=== PATIENT | female | born 1935 | race Caucasian/White ===

== ENCOUNTER 2023-05-25 12:16 | Emergency (ER) | payer BC, OTHER ==
[~2023-05-25] VITALS: Ht 172.7 cm; Wt 110.0 kg
[2023-05-25] MEDS ORDERED: IBUPROFEN 600 MG TAB PO ONE (14:00)
[2023-05-25 15:35] VITALS: O2SAT 96
[2023-05-25] MEDS ORDERED: IBUP-1454 PO (15:36)
[2023-05-25 15:42] VITALS: BP 142/82; PULSE 85; RESP 18; O2SAT 96
== END 2023-05-25 15:43 | disposition home or self-care (01) ==
LOC: ER 12:16 → EDBD 12:16 → ER 15:43
DX: S52.592A Other fractures of lower end of left radius, initial encounter for closed fracture (principal); S93.491A Sprain of other ligament of right ankle, initial encounter; S70.01XA Contusion of right hip, initial encounter; Z85.05 Personal history of malignant neoplasm of liver; Z90.49 Acquired absence of other specified parts of digestive tract; Z88.0 Allergy status to penicillin; Z88.2 Allergy status to sulfonamides; Z88.6 Allergy status to analgesic agent; Z88.8 Allergy status to other drugs, medicaments and biological substances; Z79.1 Long term (current) use of non-steroidal anti-inflammatories (NSAID); W01.0XXA Fall on same level from slipping, tripping and stumbling without subsequent striking against object, initial encounter; Y93.01 Activity, walking, marching and hiking; Y92.480 Sidewalk as the place of occurrence of the external cause; Y99.8 Other external cause status
CPT/HCPCS: 29125; 70450; 73080; 73110; 73502; 73610

== ENCOUNTER 2024-05-25 12:37 | Inpatient (IN) | payer BC ==
[~2024-05-25] VITALS: Ht 167.6 cm; Wt 59.6 kg
[2024-05-25] VITALS (14 sets, daily range): BP systolic 116–136; BP diastolic 61–72; PULSE 57–95; RESP 12–23; TEMP 97.7–98; O2SAT 97–100
[~2024-05-25 12:37] MED LIST: IBUP-1454 PO
[2024-05-25] MEDS: ATROPINE SULF 1 MG/10ml SYR ONE ×2 (12:50→13:26)
[2024-05-25] MEDS: ANGIOMAX 250 MG VIAL IV ONE (12:50)
[2024-05-25] MEDS: IODIXANOL 320MG/ML 100ML BTL IV ONE (12:51)
[2024-05-25] MEDS: VERAPAMIL 2.5MG/ML INJ 2ML VIAL IV ONE (12:51)
[2024-05-25] MEDS: LIDOCAINE 2%HCL (LOCAL ANESTH.) INJ 10ml MDV ONE ×2 (12:51→13:04)
[2024-05-25] MEDS: fentaNYL CITRATE 100 MCG/2 ML VL ONE (12:51)
[2024-05-25] MEDS: SODIUM CHL 0.9% 50 ML ONE (12:51)
[2024-05-25] MEDS: MIDAZOLAM HCL 2MG/2ML 2ml VIAL (1mg/ml) ONE (12:51)
[2024-05-25] MEDS: diphenhdrAMINE HCL 50 MG/1 ML VL ONE (13:04)
[2024-05-25 13:05] LABS: Basophils # (auto) 0 10 ^3/uL (0-0.2); Basophils % (auto) 0.3 % (0.0-2.0); Eosinophils # (auto) 0.1 10 ^3/uL (0-0.8); Eosinophils % (auto) 0.9 % (0.0-7.0); Hematocrit 37.8 % (36.0-46.0); Hemoglobin 12.7 g/dL (12.2-16.2); Lymphocytes # (auto) 2.8 10 ^3/uL (0.4-5.4); Lymphocytes % (auto) 29.5 % (10.0-50.0); Mean Corpuscular Hemoglobin 29.8 pg (28.0-32.0); Mean Corpuscular Hgb Conc. 33.5 g/dL (32.0-36.0); Monocytes # (auto) 0.7 10 ^3/uL (0-1.3); Monocytes % (auto) 7.4 % (0.0-12.0); Neutrophils # (auto) 5.8 10 ^3/uL (1.6-8.6); Neutrophils % (auto) 61.9 % (37.0-80.0); Red Blood Cells 4.25 10^6/uL (4.0-5.20); Red Cell Distribution Width 14.9 % (11.8-14.3); White Blood Cell 9.3 10^3/uL (4.4-10.8)
[2024-05-25] MEDS: EPINEPHrine HCL 1 MG/10 ML SYRG ONE (13:11)
[2024-05-25 13:22] LABS: INR 1.08 (0.9-1.15); Partial Thromboplastin Time 24.3 SEC (24.5-34.5); Prothrombin Time 11.4 sec (9.3-11.8)
[2024-05-25 13:27] LABS: Alanine Aminotransferase 16 U/L (7-40); Albumin 4.2 g/dL (3.2-4.8); Alkaline Phosphatase 63 U/L (46-116); Anion Gap 7 (5-15); Aspartate Aminotransferase 16 U/L (13-40); BUN/Creatinine Ratio 21.9 (10.0-20.0); Bilirubin, Total 0.5 mg/dL (0.2-1.0); Blood Urea Nitrogen 21 mg/dL (9-23); Calcium 10.1 mg/dL (8.7-10.4); Carbon Dioxide 26 mmol/L (20-30); Chloride 110 mmol/L (98-107); Glucose 132 mg/dL (74-106); Potassium 3.9 mmol/L (3.5-5.1); Sodium 143 mmol/L (136-145); Total Protein 5.8 g/dL (5.7-8.2)
[2024-05-25] MEDS: CLOPIDOGREL BISULFATE 75 MG TAB ONE ×2 (13:28→13:31)
[2024-05-25] MEDS ORDERED: NITROGLYCERIN 0.4 MG SL TAB SL PRN ×2 (13:30→14:00)
[2024-05-25] MEDS ORDERED: ALEN70TA74 PO (13:52)
[2024-05-25] MEDS ORDERED: SIMV20TA20 PO (13:52)
[2024-05-25] MEDS ORDERED: MORPHINE SULFATE INJ 2 MG/ml SYRG IV PRN (14:00)
[2024-05-25] MEDS ORDERED: ALENDRONATE SODIUM PO SCH (14:00)
[2024-05-25] MEDS ORDERED: ACETAMINOPHEN 325 MG TAB PO PRN (14:00)
[2024-05-25] MEDS: PANTOPRAZOLE 40 MG/10 ML VIAL INJ IV ONE (16:10)
[2024-05-25] MEDS: SODIUM CHLORIDE 0.9% 1,000 ML IV SCH (16:10)
[2024-05-25] MEDS: ATORVASTATIN 20 MG TAB PO SCH (21:52)
[2024-05-25] MEDS: METOPROLOL TARTRATE 25 MG TAB PO SCH (21:52)
[2024-05-25] MEDS ORDERED: ATORVASTATIN 20 MG TAB PO SCH (22:00)
[2024-05-26] VITALS (7 sets, daily range): BP systolic 100–126; BP diastolic 40–56; PULSE 46–72; RESP 12–20; TEMP 97.3–98; O2SAT 95–96
[2024-05-26 06:04] LABS: Basophils # (auto) 0 10 ^3/uL (0-0.2); Basophils % (auto) 0.3 % (0.0-2.0); Eosinophils # (auto) 0.1 10 ^3/uL (0-0.8); Eosinophils % (auto) 0.9 % (0.0-7.0); Hematocrit 36.6 % (36.0-46.0); Hemoglobin 12.2 g/dL (12.2-16.2); Lymphocytes % (auto) 14.2 % (10.0-50.0); Mean Corpuscular Hemoglobin 29.7 pg (28.0-32.0); Mean Corpuscular Hgb Conc. 33.3 g/dL (32.0-36.0); Monocytes # (auto) 0.4 10 ^3/uL (0-1.3); Monocytes % (auto) 6.3 % (0.0-12.0); Neutrophils # (auto) 5.4 10 ^3/uL (1.6-8.6); Neutrophils % (auto) 78.3 % (37.0-80.0); Red Blood Cells 4.11 10^6/uL (4.0-5.20); Red Cell Distribution Width 15.1 % (11.8-14.3); White Blood Cell 6.9 10^3/uL (4.4-10.8)
[2024-05-26 08:12] LABS: Chloride 109 mmol/L (98-107); Potassium 3.8 mmol/L (3.5-5.1); Sodium 140 mmol/L (136-145)
[2024-05-26 08:13] LABS: Anion Gap 7 (5-15); Calcium 9.5 mg/dL (8.7-10.4); Carbon Dioxide 24 mmol/L (20-30)
[2024-05-26 08:18] LABS: BUN/Creatinine Ratio 13.9 (10.0-20.0); Blood Urea Nitrogen 10 mg/dL (9-23); Glucose 88 mg/dL (74-106)
[2024-05-26] MEDS: LISINOPRIL 5 MG TAB PO SCH (10:00)
[2024-05-26] MEDS: PANTOPRAZOLE 40 MG/10 ML VIAL INJ IV SCH (11:06)
[2024-05-26] MEDS: ASPirin 81 mg TAB PO SCH (11:07)
[2024-05-26] MEDS: CLOPIDOGREL BISULFATE 75 MG TAB PO SCH (11:07)
[2024-05-26] MEDS ORDERED: LISI-275 PO (12:38)
[2024-05-26] MEDS ORDERED: CLOP75TA70 PO (12:38)
[2024-05-26] MEDS ORDERED: MET25T PO (12:38)
[2024-05-26] MEDS ORDERED: ASPI-325 PO (12:38)
[2024-05-26] MEDS ORDERED: ATOR40TA52 PO (12:38)
[2024-05-27 04:43] VITALS: BP 117/61; PULSE 59; RESP 20; TEMP 97.7; O2SAT 95
[2024-05-27 06:54] LABS: Basophils # (auto) 0 10 ^3/uL (0-0.2); Basophils % (auto) 0.3 % (0.0-2.0); Eosinophils # (auto) 0.1 10 ^3/uL (0-0.8); Eosinophils % (auto) 1.2 % (0.0-7.0); Hematocrit 37.2 % (36.0-46.0); Hemoglobin 12.3 g/dL (12.2-16.2); Lymphocytes % (auto) 18.9 % (10.0-50.0); Mean Corpuscular Hemoglobin 29.1 pg (28.0-32.0); Mean Corpuscular Volume 88.1 fL (80.0-100.0); Monocytes # (auto) 0.4 10 ^3/uL (0-1.3); Monocytes % (auto) 7.5 % (0.0-12.0); Neutrophils # (auto) 3.8 10 ^3/uL (1.6-8.6); Neutrophils % (auto) 72.1 % (37.0-80.0); Red Blood Cells 4.22 10^6/uL (4.0-5.20); Red Cell Distribution Width 15.2 % (11.8-14.3); White Blood Cell 5.2 10^3/uL (4.4-10.8)
[2024-05-27 07:14] LABS: Alanine Aminotransferase 14 U/L (7-40); Alkaline Phosphatase 55 U/L (46-116); Anion Gap 6 (5-15); BUN/Creatinine Ratio 15.1 (10.0-20.0); Blood Urea Nitrogen 11 mg/dL (9-23); Calcium 9.6 mg/dL (8.7-10.4); Carbon Dioxide 26 mmol/L (20-30); Chloride 109 mmol/L (98-107); Glucose 96 mg/dL (74-106); Sodium 141 mmol/L (136-145)
[2024-05-27 07:16] LABS: Albumin 3.9 g/dL (3.2-4.8); Aspartate Aminotransferase 38 U/L (13-40); Bilirubin, Total 0.9 mg/dL (0.2-1.0); Total Protein 5.6 g/dL (5.7-8.2)
[2024-05-27 07:25] VITALS: PULSE 64; PULSE 66
[2024-05-27 09:03] VITALS: BP 106/65; PULSE 83; RESP 20; TEMP 98.9; O2SAT 97
[2024-05-27 10:42] VITALS: BP 107/47; PULSE 70
[2024-05-27 12:17] VITALS: BP 111/62; PULSE 66; RESP 20; TEMP 98.4; O2SAT 96
[2024-05-28 09:22] LABS: Free T3 2.94 pg/mL (2.3-4.2)
[2024-05-28 09:23] LABS: Free T4 (Free Thyroxine) 1.09 ng/dL (0.89-1.76)
== END 2024-05-27 15:25 | disposition home or self-care (01) | DRG 321 ==
LOC: ER 12:37 → EDBD 12:37 → TELE 13:31 → TELE-CENTR 18:10
PROVIDERS: ADMIT Nurse Practitioner Acute Care; ATTEND Nurse Practitioner Family
PROC: 02703DZ Dilation of Coronary Artery, One Artery with Intraluminal Device, Percutaneous Approach (ICD-10-PCS; principal; 2024-05-25)
PROC: 02C03ZZ Extirpation of Matter from Coronary Artery, One Artery, Percutaneous Approach (ICD-10-PCS; 2024-05-25)
PROC: 4A023N7 Measurement of Cardiac Sampling and Pressure, Left Heart, Percutaneous Approach (ICD-10-PCS; 2024-05-25)
PROC: B211YZZ Fluoroscopy of Multiple Coronary Arteries using Other Contrast (ICD-10-PCS; 2024-05-25)
DX: I21.29 ST elevation (STEMI) myocardial infarction involving other sites (principal); G92.8 Other toxic encephalopathy; I50.32 Chronic diastolic (congestive) heart failure; E78.5 Hyperlipidemia, unspecified; M81.0 Age-related osteoporosis without current pathological fracture; I25.10 Atherosclerotic heart disease of native coronary artery without angina pectoris; D69.6 Thrombocytopenia, unspecified; K21.9 Gastro-esophageal reflux disease without esophagitis; B19.20 Unspecified viral hepatitis C without hepatic coma; Z88.0 Allergy status to penicillin; Z88.6 Allergy status to analgesic agent; Z85.05 Personal history of malignant neoplasm of liver; Z91.048 Other nonmedicinal substance allergy status; Z90.49 Acquired absence of other specified parts of digestive tract
CPT/HCPCS: 36415; 70450; 71045; 80048; 80053; 80061; 83036; 83735; 83880; 84439; 84443; 84481; 84484; 85025; 85610; 85730; 86850; 86900; 86901; 92941; 92973; 93005; 93306; 93458; 99152; G0378; J2001; J2250; J2470; Q9967

== ENCOUNTER 2025-09-26 11:52 | Inpatient (IN) | payer BC ==
[~2025-09-26] VITALS: Ht 167.6 cm; Wt 49.5 kg
[~2025-09-26 11:52] MED LIST changes: +ALEN70TA74 PO; +ASPI-325 PO; +ATOR40TA52 PO; +CLOP75TA70 PO; +LISI-275 PO; +MET25T PO; +SIMV20TA20 PO
--- NOTE | 2025-09-26 12:44 | ED.PDOC ---
Musculoskeletal HPI Comments 89y F who presents to the ED for chief complaint of leg swelling. Pt states she has been having bilateral leg swelling for the past 1x week. Pt states she has been having shortness of breath but states this is chronic in nature and denies any associated fever, chills, diaphoresis or associated symptoms. Pt states she has also been having associated urinary hesitancy but denies any associated symptoms. Pt otherwise noted to be ambulating with walker. Pt otherwise has stable vitals in the ED. Chief Complaint: Extremity Swelling Time Seen by MD: 12:38 Primary Care Provider: unknown Reviewed Notes: Nurses Notes, Medications, Allergies Allergies: Coded Allergies: Acetaminophen (Verified Allergy, Unknown, 05/25/23) Amitriptyline (Unverified Allergy, Unknown, 05/25/24) Aspirin (Unverified Allergy, Unknown, 05/25/24) Bacitracin (Unverified Allergy, Unknown, 05/25/24) Carbimazole (Verified Allergy, Unknown, 05/25/23) Carisoprodol (Unverified Allergy, Unknown, 05/25/24) Codeine (Verified Allergy, Unknown, 05/25/23) Dexamethasone (Unverified Allergy, Unknown, 05/25/24) Diphenhydramine (Unverified Allergy, Unknown, 05/25/24) Dithiazanine (Verified Allergy, Unknown, 05/25/23) Doxycycline (Unverified Allergy, Unknown, 05/25/24) Fentanyl (Verified Allergy, Unknown, 05/25/23) Gabapentin (Verified Allergy, Unknown, 05/25/23) Hydromorphone (Unverified Allergy, Unknown, 05/25/24) Lidocaine (Verified Allergy, Unknown, 05/25/23) Metolazone (Verified Allergy, Unknown, 05/25/23) Midazolam (Unverified Allergy, Unknown, 05/25/24) Morphine (Verified Allergy, Unknown, 05/25/23) Neomycin (Unverified Allergy, Unknown, 05/25/24) Oxycodone (Unverified Allergy, Unknown, 05/25/24) Penicillins (Verified Allergy, Unknown, 05/25/23) Polymyxin B (Unverified Allergy, Unknown, 05/25/24) Prednisone (Unverified Allergy, Unknown, 05/25/24) Propoxyphene (Unverified Allergy, Unknown, 05/25/24) Sulfa Antibiotics (Verified Allergy, Unknown, 05/25/23) Tramadol (Verified Allergy, Unknown, 05/25/23) Uncoded Allergies: TAPE (Allergy, Unknown, 05/25/23) Home Meds Active Scripts Atorvastatin Calcium (ATORVASTATIN CALCIUM) 40 Mg Tab, 1 TAB PO QPM, #90 TAB 3 Refills Prov:HOMAR MUÑIZ MD 05/26/24 Metoprolol Tartrate (Lopressor) 25 Mg Tb, 12.5 MG PO BID for 30 Days, #60 TAB Prov:HOMAR MUÑIZ MD 05/26/24 Lisinopril (Lisinopril) 5 Mg Tab, 10 MG PO DAILY for 30 Days, #60 TAB Prov:HOMAR MUÑIZ MD 05/26/24 Clopidogrel Bisulfate (CLOPIDOGREL) 75 Mg Tab, 75 MG PO DAILY for 90 Days, #90 TAB Prov:HOMAR MUÑIZ MD 05/26/24 Aspirin (Aspirin Low Dose) 81 Mg Tab, 81 MG PO DAILY for 30 Days, #30 TAB Prov:HOMAR MUÑIZ MD 05/26/24 Ibuprofen (Ibuprofen) 600 Mg Tab, 1 TAB PO BID, #30 TAB Prov:ELYSSA CROWDER 05/25/23 Reported Medications Simvastatin (Simvastatin) 20 Mg Tab, 1 TAB PO DAILY 05/25/24 Alendronate Sodium (Alendronate Sodium) 70 Mg Tab, 1 TAB PO QWEEKLY 05/25/24 Information Source: Patient, Friend Mode of Arrival: Ambulatory Brought in by: friend Location: Bilateral Extremity Location: Leg Timing: Days Prehospital treatment: None Severity: Moderate Able to Move Extremity: Yes Bear Weight: Fully Pain: None Mechanism: Spontaneous Onset of Symptoms: Spontaneous Symptoms: Swelling DVT Risk Factors: NONE Last Tetanus: Unknown History of: Knee Operation Associated signs and symptoms: SOB, Leg pain Past Medical History PAST MEDICAL HISTORY: Cancer, Liver, [place], TIA Surgical History: Appendectomy, Cholecystectomy, Hernia Repair, Hysterectomy, P TCA Surgical History (Other): b/l knee surgery, neck surgery, cataracts, R shoulder, R foot surgery CONE EXAMINER History: Denies all CONE EXAMINER Hx Family History Family History: Family hx of Cancer Social History Smoker: Non-Smoker Alcohol: Denies ETOH Use Drugs: Denies Drug Use Lives In: Home Constitutional: denies: chills, diaphoresis, fatigue, fever, malaise, sweats, weakness, others EENTM: denies: blurred vision, double vision, ear bleeding, ear discharge, ear drainage, ear pain, ear ringing, eye pain, eye redness, hearing loss, mouth pain, mouth swelling, nasal discharge, nose bleeding, nose congestion, nose pain, photophobia, tearing, throat pain, throat swelling, voice changes, others Respiratory: reports: shortness of breath; denies: cough, hemoptysis, or thopnea, SOB at rest, SOB with excertion, stridor, wheezing, others Cardiovascular: denies: chest pain, dizzy spells, diaphoresis, Dyspnea on exertion, edema, irregular heart beat, left arm pain, lightheadedness, palpitations, PND, syncope, others Gastrointestinal: denies: abdomen distended, abdominal pain, blood streaked bowels, constipated, diarrhea, dysphagia, difficulty swallowing, hematemesis, melena, nausea, poor appetite, poor fluid intake, rectal bleeding, rectal pain, vomiting, others Genitourinary: denies: abnormal vagina bleeding, burning, dyspareunia, dysuria, flank pain, frequency, hematuria, incontinence, pain, , vagina discharge, urgency, others Neurological: denies: dizziness, fainting, headache, left sided numbness, left sided weakness, numbness, paresthesia, pre-existing deficit, right sided numbness, right sided weakness, seizure, speech problems, tingling, tremors, weakness, others Musculoskeletal: reports: joint swelling (b/l lower extremity); denies: back pain, gout, joint pain, muscle pain, muscle stiffness, neck pain, others Integumetry: denies: bruises, change in color, change in hair/nails, dryness, laceration, lesions, lumps, rash, wounds, others Allergic/Immunocompromised: denies: Difficulty Healing, Frequent Infections, Hives, Itching, others Hematologic/Lymphatic: denies: anemia, blood clots, easy bleeding, easy bruising, swollen glands, others Endocrine: denies: excessive hunger, excessive sweating, excessive thirst, excessive urination, flushing, intolerance to cold, intolerance to heat, unexplained weight gain, unexplained weight loss, others Psychiatric: denies: anxiety, bipolar disorder, depression, hopeless, panic disorder, schizophrenia, sleepless, suicidal, others All Other Systems: Reviewed and Negative Physical Exam General Appearance: Moderate Distress, Thin HEENT: Normal ENT Inspection, Pharynx Normal, TMs Normal Neck: Full Range of Motion, Non-Tender, Normal, Normal Inspection Respiratory: Chest Non-Tender, Lungs Clear, No Accessory Muscle Use, No Respiratory Distress, Normal Breath Sounds Cardiovascular: No Edema, No JVD, No Murmur, No Gallop, Normal Peripheral Pulses, Regular Rate/Rhythm Breast Exam: Deferred Gastrointestinal: No Organomegaly, Non Tender, No Pulsatile Mass, Normal Bowel Sounds, Soft Genitalia: Deferred Pelvic: Deferred Rectal: Deferred Extremities: No calf tenderness, Normal capillary refill, Pedal edema Musculoskeletal : Apperance: Normal Neurologic: Alert, power and recovery superintendent II-XII nml as Tested, Motor Weakness, Normal Affect, Normal Mood, No Sensory Deficits Cerebellar Function: Normal Reflexes: Normal Skin: Dry, Pallor, Warm Lymphatic: No Adenopathy Was a procedure done? Was a procedure done?: No Differential Diagnosis EXT Differential Diagnosis: Cellulitis, CHF, Deep Vein Thrombosis, Compartment Syndrome, Rheumatoid, Arthritis Other Differential Diagnosis uti, X-Ray, Labs, Meds, VS Vital Signs Date Time Temp Pulse Resp B/P (MAP) Pulse Ox O2 Delivery O2 Flow Rate FiO2 09/26/25 11:55 98.2 72 18 136/71 97 98.2 Lab Test 09/26/25 13:04 Range/Units White Blood Count 5.2 4.4-10.8 10^3/uL Red Blood Count 3.96 L 4.0-5.20 10^6/uL Hemoglobin 10.7 L 12.2-16.2 g/dL Hematocrit 32.9 L 36.0-46.0 % Mean Corpuscular Volume 83.2 80.0-100.0 fL Mean Corpuscular Hemoglobin 27.0 L 28.0-32.0 pg Mean Corpuscular Hemoglobin Concent 32.4 32.0-36.0 g/dL Red Cell Distribution Width 17.0 H 11.8-14.3 % Platelet Count 106 L 140-450 10^3/uL Mean Platelet Volume 8.8 6.9-10.8 fL Neutrophils (%) (Auto) 80.9 H 37.0-80.0 % Lymphocytes (%) (Auto) 10.1 10.0-50.0 % Monocytes (%) (Auto) 7.7 0.0-12.0 % Eosinophils (%) (Auto) 1.0 0.0-7.0 % Basophils (%) (Auto) 0.3 0.0-2.0 % Neutrophils # (Auto) 4.2 1.6-8.6 10 ^3/uL Lymphocytes # (Auto) 0.5 0.4-5.4 10 ^3/uL Monocytes # (Auto) 0.4 0-1.3 10 ^3/uL Eosinophils # (Auto) 0 0-0.8 10 ^3/uL Basophils # (Auto) 0 0-0.2 10 ^3/uL Nucleated Red Blood Cells 0.0 % Sodium Level 143 136-145 mmol/L Potassium Level 3.9 3.5-5.1 mmol/L Chloride Level 108 H 98-107 mmol/L Carbon Dioxide Level 27 20-31 mmol/L Anion Gap 8 5-15 Blood Urea Nitrogen 10 9-23 mg/dL Creatinine 0.64 0.550-1.02 mg/dL Glomerular Filtration Rate Calc 85 >90 mL/min BUN/Creatinine Ratio 15.6 10.0-20.0 Serum Glucose 92 74-106 mg/dL Calcium Level 9.2 8.7-10.4 mg/dL B-Type Natriuretic Peptide 310.39 0-100 pg/mL PROCEDURE(s): BLDVT - BiLat Lower DVT IMPRESSION: 1. No right or left femoropopliteal venous thrombosis. PROCEDURE(s): CXR2 - CHEST TWO VIEWS ROUTINE IMPRESSION: NO ACUTE CARDIOPULMONARY PROCESS. IV Hep-Lock was established The BNP is 310.39 The rest of the chemistry panel is within normal limits. The patient's CBC shows anemia with a hemoglobin of 10.7 and hematocrit of 32.9 The patient is being admitted at this time Images Reviewed?: Images reviewed and evaluated by me Time of 1ST Reevaluation: 13:00 Reevaluation 1ST: Unchanged Patient Education/Counseling: Diagnosis, Treatment, Prognosis Family Education/Counseling: Diagnosis, Treatment, Prognosis Departure 1 Departure Time of Disposition: 14:30 Impression: Primary Impression: Bilateral leg edema Additional Impression: Acute respiratory distress Disposition: 09 ADMITTED INPATIENT Admit to: [facility] Condition: Fair Critical Care Note Critical Care Time?: Yes (35 min-critical care time only) Stability Stability form required: Yes Unstable for transfer: Telemetry monitoring (Telemetry monitoring required), ED Physician Assesment (Clinical assesment) Heart Score Heart Score: Heart Score Response (Comments) Value History N/A 0 EKG N/A 0 Age N/A 0 Risk Factors N/A 0 Troponin N/A 0 Total 0 I personally scribed for JUAN YAN MD ([email or web address]) on 09/26/25 at 12:44. Electronically submitted by Yao Cano ([email or web address]). I personally scribed for JUAN YAN MD ([email or web address]) on 09/26/25 at 13:22. Electronically submitted by Yao Cano ([email or web address]). JUAN YAN MD Sep 26, 2025 12:44
--- NOTE | 2025-09-26 12:48 | DVH ---
CLINICAL HISTORY: sob TECHNIQUE: Chest 2 views of the chest were obtained. COMPARISON: XY CHEST PORTABLE on DOS: 05/25/24 FINDINGS: The heart size and pulmonary vasculature are normal. The lungs are clear. No pleural effusion is present. There is cervical fusion hardware. There are aortic atherosclerotic calcifications. IMPRESSION: NO ACUTE CARDIOPULMONARY PROCESS.
[2025-09-26 13:18] LABS: Hematocrit 32.9 % (36.0-46.0); Hemoglobin 10.7 g/dL (12.2-16.2); Mean Corpuscular Hemoglobin 27.0 pg (28.0-32.0); Mean Corpuscular Volume 83.2 fL (80.0-100.0); Nucleated Red Blood Cells % 0.0 %
--- NOTE | 2025-09-26 13:19 | DVH ---
Bilateral lower extremity venous duplex CLINICAL HISTORY: leg swelling COMPARISON: XY R ANKLE 3 VIEW on DOS: 05/25/23 TECHNIQUE: Duplex doppler evaluation of the deep venous systems of both lower extremities from the common femoral veins to the popliteal veins including color doppler and spectral/pulsed waveform analysis was performed. FINDINGS: RIGHT SIDE: The common femoral vein demonstrates appropriate compressibility and waveform variability. There is compressibility/patency of the great saphenous vein at the proximal thigh. The femoral vein demonstrates appropriate compressibility and waveform variability. The deep femoral vein demonstrates appropriate compressibility and waveform variability. The popliteal vein demonstrates appropriate compressibility and waveform variability. There is normal compressibility at the tibioperoneal trunk. LEFT SIDE: The common femoral vein demonstrates appropriate compressibility and waveform variability. There is compressibility/patency of the great saphenous vein at the proximal thigh. The femoral vein demonstrates appropriate compressibility and waveform variability. The deep femoral vein demonstrates appropriate compressibility and waveform variability. The popliteal vein demonstrates appropriate compressibility and waveform variability. There is normal compressibility at the tibioperoneal trunk. IMPRESSION: 1. No right or left femoropopliteal venous thrombosis.
[2025-09-26 13:27] LABS: Potassium 3.9 mmol/L (3.5-5.1); Sodium 143 mmol/L (136-145)
[2025-09-26 13:28] LABS: Anion Gap 8 (5-15); Calcium 9.2 mg/dL (8.7-10.4); Carbon Dioxide 27 mmol/L (20-31)
[2025-09-26 13:33] LABS: BUN/Creatinine Ratio 15.6 (10.0-20.0); Blood Urea Nitrogen 10 mg/dL (9-23); Chloride 108 mmol/L (98-107); Glucose 92 mg/dL (74-106)
[2025-09-26] MEDS ORDERED: ONDANSETRON HCL 4 MG/2 ML VIAL IV PRN (19:15)
--- NOTE | 2025-09-26 19:26 | DVHHP2 ---
History of Present Illness Reason for Visit: Lower extremity swelling History of Present Illness 82-year-old female presents for evaluation of lower extremity swelling. Patient reports a one-week history of worsening lower extremity swelling she states having mild shortness for breath as well. Denies fever or chills. No chest pain or pressure. No other acute complaints reported. Past Medical History Cancer, [place], liver disease, TIA, hypertension Past Surgical History Right foot surgery, knee Family History Cancer Smoke: No ALCOHOL: none Drugs: None Lives: with Family Review of Systems Review of Systems Review of systems are currently negative otherwise addressed in HPI. Allergies: Coded Allergies: Acetaminophen (Verified Allergy, Unknown, 05/25/23) Amitriptyline (Unverified Allergy, Unknown, 05/25/24) Aspirin (Unverified Allergy, Unknown, 05/25/24) Bacitracin (Unverified Allergy, Unknown, 05/25/24) Carbimazole (Verified Allergy, Unknown, 05/25/23) Carisoprodol (Unverified Allergy, Unknown, 05/25/24) Codeine (Verified Allergy, Unknown, 05/25/23) Dexamethasone (Unverified Allergy, Unknown, 05/25/24) Diphenhydramine (Unverified Allergy, Unknown, 05/25/24) Dithiazanine (Verified Allergy, Unknown, 05/25/23) Doxycycline (Unverified Allergy, Unknown, 05/25/24) Fentanyl (Verified Allergy, Unknown, 05/25/23) Gabapentin (Verified Allergy, Unknown, 05/25/23) Hydromorphone (Unverified Allergy, Unknown, 05/25/24) Lidocaine (Verified Allergy, Unknown, 05/25/23) Metolazone (Verified Allergy, Unknown, 05/25/23) Midazolam (Unverified Allergy, Unknown, 05/25/24) Morphine (Verified Allergy, Unknown, 05/25/23) Neomycin (Unverified Allergy, Unknown, 05/25/24) Oxycodone (Unverified Allergy, Unknown, 05/25/24) Penicillins (Verified Allergy, Unknown, 05/25/23) Polymyxin B (Unverified Allergy, Unknown, 05/25/24) Prednisone (Unverified Allergy, Unknown, 05/25/24) Propoxyphene (Unverified Allergy, Unknown, 05/25/24) Sulfa Antibiotics (Verified Allergy, Unknown, 05/25/23) Tramadol (Verified Allergy, Unknown, 05/25/23) Uncoded Allergies: TAPE (Allergy, Unknown, 05/25/23) Medications Current Medications Medications Dose Ordered Sig/Monty Route Start Time Stop Time Status Last Admin Dose Admin Furosemide 40 mg DAILY PO 09/27/25 10:00 UNV Clopidogrel Bisulfate 75 mg DAILY PO 09/27/25 10:00 UNV Lisinopril 10 mg DAILY PO 09/27/25 10:00 UNV Metoprolol Tartrate 12.5 mg BID PO 09/26/25 22:00 UNV Ondansetron HCl 4 mg Q4HP PRN IV 09/26/25 19:15 UNV Enoxaparin Sodium 40 mg DAILY SC 09/27/25 10:00 UNV Exam Vital Signs Vital Signs Date Time Temp Pulse Resp B/P (MAP) Pulse Ox O2 Delivery O2 Flow Rate FiO2 09/26/25 16:37 98 Room Air* 0 21 09/26/25 16:36 98.3 64 19 157/96 (116) 98.3 Exam Gen: 89-year-old female in mild distress Skin: Warm, dry, normal color and texture, no rash. HEENT: Normocephalic atraumatic, mucous membranes moist and pink. Neck: Cervical and supraclavicular nodes normal without enlargement, trachea is midline, thyroid gland is normal without masses. Pulmonary: Clear to auscultation and percussion bilaterally. Cardiac: Regular rate and rhythm. No murmur Abdomen: Soft, nontender, nondistended, bowel sounds present all 4 quadrants, no guarding, no rigidity, no organomegaly. Extremities: No cyanosis, clubbing, plus two bilateral lower extremity edema Neuro: Cranial nerves II through XII grossly intact, normal affect and speech, no focal motor deficits. Labs/Xrays ORDERING PHYSICIAN: JUAN YAN MD PROCEDURE(s): CXR2 - CHEST TWO VIEWS ROUTINE REASON: sob ORDER NUMBER(s): [id number], ACCESSION NUMBER(s): [id number] CLINICAL HISTORY: sob TECHNIQUE: Chest 2 views of the chest were obtained. COMPARISON: XY CHEST PORTABLE on DOS: 05/25/24 FINDINGS: The heart size and pulmonary vasculature are normal. The lungs are clear. No pleural effusion is present. There is cervical fusion hardware. There are aortic atherosclerotic calcifications. IMPRESSION: NO ACUTE CARDIOPULMONARY PROCESS. RING PHYSICIAN: JUAN YAN MD PROCEDURE(s): BLDVT - BiLat Lower DVT REASON: leg swelling ORDER NUMBER(s): [id number], ACCESSION NUMBER(s): [id number] Bilateral lower extremity venous duplex CLINICAL HISTORY: leg swelling COMPARISON: XY R ANKLE 3 VIEW on DOS: 05/25/23 TECHNIQUE: Duplex doppler evaluation of the deep venous systems of both lower extremities from the common femoral veins to the popliteal veins including color doppler and spectral/pulsed waveform analysis was performed. FINDINGS: RIGHT SIDE: The common femoral vein demonstrates appropriate compressibility and waveform v ariability. There is compressibility/patency of the great saphenous vein at the proximal thigh. The femoral vein demonstrates appropriate compressibility and waveform variability. The deep femoral vein demonstrates appropriate compressibility and waveform variability. The popliteal vein demonstrates appropriate compressibility and waveform variability. There is normal compressibility at the tibioperoneal trunk. LEFT SIDE: The common femoral vein demonstrates appropriate compressibility and waveform variability. There is compressibility/patency of the great saphenous vein at the proximal thigh. The femoral vein demonstrates appropriate compressibility and waveform variability. The deep femoral vein demonstrates appropriate compressibility and waveform variability. The popliteal vein demonstrates appropriate compressibility and waveform variability. There is normal compressibility at the tibioperoneal trunk. IMPRESSION: 1. No right or left femoropopliteal venous thrombosis. Labs Test 09/26/25 13:04 Range/Units White Blood Count 5.2 4.4-10.8 10^3/uL Red Blood Count 3.96 L 4.0-5.20 10^6/uL Hemoglobin 10.7 L 12.2-16.2 g/dL Hematocrit 32.9 L 36.0-46.0 % Mean Corpuscular Volume 83.2 80.0-100.0 fL Mean Corpuscular Hemoglobin 27.0 L 28.0-32.0 pg Mean Corpuscular Hemoglobin Concent 32.4 32.0-36.0 g/dL Red Cell Distribution Width 17.0 H 11.8-14.3 % Platelet Count 106 L 140-450 10^3/uL Mean Platelet Volume 8.8 6.9-10.8 fL Neutrophils (%) (Auto) 80.9 H 37.0-80.0 % Lymphocytes (%) (Auto) 10.1 10.0-50.0 % Monocytes (%) (Auto) 7.7 0.0-12.0 % Eosinophils (%) (Auto) 1.0 0.0-7.0 % Basophils (%) (Auto) 0.3 0.0-2.0 % Neutrophils # (Auto) 4.2 1.6-8.6 10 ^3/uL Lymphocytes # (Auto) 0.5 0.4-5.4 10 ^3/uL Monocytes # (Auto) 0.4 0-1.3 10 ^3/uL Eosinophils # (Auto) 0 0-0.8 10 ^3/uL Basophils # (Auto) 0 0-0.2 10 ^3/uL Nucleated Red Blood Cells 0.0 % Sodium Level 143 136-145 mmol/L Potassium Level 3.9 3.5-5.1 mmol/L Chloride Level 108 H 98-107 mmol/L Carbon Dioxide Level 27 20-31 mmol/L Anion Gap 8 5-15 Blood Urea Nitrogen 10 9-23 mg/dL Creatinine 0.64 0.550-1.02 mg/dL Glomerular Filtration Rate Calc 85 >90 mL/min BUN/Creatinine Ratio 15.6 10.0-20.0 Serum Glucose 92 74-106 mg/dL Calcium Level 9.2 8.7-10.4 mg/dL B-Type Natriuretic Peptide 310.39 0-100 pg/mL SEPSIS Sepsis Screen Date sepsis recognized/suspect: Sep 26, 2025 Time Sepsis recognized/suspect: 1201 Recent Procedure: No On Antibiotic Therapy: No Respiratory Rate >20: No Heart Rate >90: No Temp<36 C (96.8 F) or >38.3 C: No SBP <90 or MAP <65 mmHG: No New Acute Mental Status Change: No Is the patient on CPAP, BIPAP,: No Physician Orders Urinalysis (09/26/25 12:14) Chest Two Views Routine (09/26/25 12:14) Heplock Iv (09/26/25 12:14) Game Farm Supervisor (09/26/25 12:14) Blood Pressure (09/26/25 12:14) Pulse Oximetry (09/26/25 12:14) Electrocardigram (09/26/25 12:14) Gomez Catheters (09/26/25 ) Bilat Lower Dvt (09/26/25 12:14) Furosemide Injection (Lasix Injection) (09/26/25 19:15) Furosemide Tablet (Lasix Tablet) (09/27/25 10:00) Clopidogrel Bisulfate (Plavix) (09/27/25 10:00) Lisinopril Tablet (Zestril Tablet) (09/27/25 10:00) Metoprolol Tartrate Tablet (Lopressor Ta (09/26/25 22:00) Basic Metabolic Panel (09/27/25 04:00) Admit (09/26/25 19:01) Ondansetron Hcl (Zofran) (09/26/25 19:15) Enoxaparin Sodium (Lovenox) (09/27/25 10:00) Cardiac Diet-2gna,Lofat,Lochol (09/27/25 Breakfast) Echo 2d Mode Cardiac Dop (09/26/25 19:01) Condition: Stable (09/26/25 19:01) Bedrest With Bathroom Privileg (09/26/25 19:01) Vital Signs Date Time Temp Pulse Resp B/P (MAP) Pulse Ox O2 Delivery O2 Flow Rate FiO2 09/26/25 16:37 98 Room Air* 0 21 09/26/25 16:36 98.3 64 19 157/96 (116) 98 98.3 09/26/25 11:55 98.2 72 18 136/71 97 98.2 Laboratory Tests Test 09/26/25 13:04 White Blood Count 5.2 10^3/uL (4.4-10.8) Assessment/Plan Assessment/Plan Assessment ? Heart failure Respiratory distress Hypertension Plan Admit the patient to [facility] to the hospitalist Penelope Resume home medications Echocardiogram pending Continue treatment per orders Plan discussed with: Patient My Orders Orders - JESÚS JONES AGACNP Procedure Category Date Status Time Furosemide Injection PHA 09/26/25 Logged (Lasix Injection) 19:15 Furosemide Tablet PHA 09/27/25 Logged (Lasix Tablet) 10:00 Clopidogrel Bisulfate PHA 09/27/25 Logged (Plavix) 10:00 Lisinopril Tablet PHA 09/27/25 Logged (Zestril Tablet) 10:00 Metoprolol Tartrate PHA 09/26/25 Logged Tablet (Lopressor Ta 22:00 Basic Metabolic Panel LAB 09/27/25 Verified 04:00 Admit ADMIT 09/26/25 Transmitted 19:01 Ondansetron Hcl PHA 09/26/25 Logged (Zofran) 19:15 Enoxaparin Sodium PHA 09/27/25 Logged (Lovenox) 10:00 Cardiac DIET 09/27/25 Transmitted Diet-2gna,Lofat,Lochol Breakfast Echo 2d Mode Cardiac US 09/26/25 Logged DOP 19:01 Condition: Stable TERRENCE 09/26/25 In Process 19:01 Bedrest With Bathroom TERRENCE 09/26/25 In Process Privileg 19:01 Date of Service: Sep 26, 2025 Billing Provider: JESÚS JONES Common Visit Codes: [id number] INP/OBS CARE (MOD) JESÚS JONES Sep 26, 2025 19:26
[2025-09-26] MEDS: FUROSEMIDE 20 MG/2 ML VIAL IV ONE (21:36)
[2025-09-26 21:46] LABS: Urine Protein, UAD Negative (Negative)
[2025-09-26 21:58] VITALS: PULSE 62; RESP 14; O2SAT 98
[2025-09-26] MEDS: METOPROLOL TARTRATE 25 MG TAB PO SCH (22:00)
[2025-09-26 22:25] VITALS: BP 136/86; PULSE 60; RESP 16; TEMP 97.9; O2SAT 97
[2025-09-27] VITALS (8 sets, daily range): BP systolic 90–153; BP diastolic 47–75; PULSE 54–69; RESP 16–18; TEMP 97.5–98.2; O2SAT 94–99
[2025-09-27 07:11] LABS: Chloride 107 mmol/L (98-107); Potassium 3.6 mmol/L (3.5-5.1); Sodium 143 mmol/L (136-145)
[2025-09-27 07:12] LABS: Anion Gap 9 (5-15); Calcium 9.2 mg/dL (8.7-10.4); Carbon Dioxide 27 mmol/L (20-31)
[2025-09-27 07:18] LABS: BUN/Creatinine Ratio 14.5 (10.0-20.0); Glucose 87 mg/dL (74-106)
[2025-09-27 07:23] LABS: Blood Urea Nitrogen 9 mg/dL (9-23)
[2025-09-27] MEDS: LISINOPRIL 5 MG TAB PO SCH (09:58)
[2025-09-27] MEDS: FUROSEMIDE 40 MG TAB PO SCH (10:00)
[2025-09-27] MEDS: CLOPIDOGREL BISULFATE 75 MG TAB PO SCH (10:54)
[2025-09-27] MEDS: ENOXAPARIN SOD 40 MG/0.4 ML SYRINGE SC SCH (10:55)
--- NOTE | 2025-09-27 16:58 | DVHPN2 ---
Subjective Feeling well in bed Reviewed: H&P Changes from previous H/P or p: No Changes Objective Vitals Vital Signs Date Time Temp Pulse Resp B/P (MAP) Pulse Ox O2 Delivery O2 Flow Rate FiO2 09/27/25 13:00 98.0 63 16 120/61 (80) 96 98.0 09/27/25 08:00 Room Air* 0 21 Intake/Output Intake and Output 09/27/25 05:00 Intake Total 0 ml Output Total 2200 ml Balance -2200 ml Intake Oral 0 ml Output Urine Total 2200 ml General Appearance: Alert Lungs: Clear to auscultation Cardiovascular: Regular rate, Normal S1, Normal S2 Abdomen: Normal bowel sounds Medications Current Medications Medications Dose Ordered Sig/Monty Route Start Time Stop Time Status Last Admin Dose Admin Furosemide 40 mg DAILY PO 09/27/25 10:00 09/27/25 10:00 40 MG Clopidogrel Bisulfate 75 mg DAILY PO 09/27/25 10:00 09/27/25 10:54 75 MG Lisinopril 10 mg DAILY PO 09/27/25 10:00 09/27/25 09:58 10 MG Metoprolol Tartrate 12.5 mg BID PO 09/26/25 22:00 09/27/25 10:00 12.5 MG Ondansetron HCl 4 mg Q4HP PRN IV 09/26/25 19:15 Enoxaparin Sodium 40 mg DAILY SC 09/27/25 10:00 09/27/25 10:55 40 MG Enteral Nutritional Formula 240 ml TIDAC PO 09/27/25 17:00 Laboratory Results Laboratory Tests 09/26/25 13:04 09/27/25 06:30 Chemistry Test 09/27/25 06:30 Calcium Level 9.2 mg/dL (8.7-10.4) Urinalysis Test 09/26/25 21:37 Urine Color Yellow (Yellow) Urine Clarity Clear (Clear) Urine pH 7.5 (5.0-9.0) Urine Specific [place] 1.018 (1.001-1.035) Urine Protein Negative (Negative) Urine Ketones Negative (Negative) Urine Blood Negative /uL (Negative) Urine Nitrite Negative (Negative) Urine Bilirubin Negative (Negative) Urine Urobilinogen Normal mg/dL (Negative) Urine Leukocyte Esterase Negative /uL (Negative) Urine RBC 1 /hpf (0 - 4) Urine Microscopic WBC 1 /HPF (0-5) Urine Squamous Epithelial Cells None seen /hpf (<5) Urine Bacteria None seen /hpf (None Seen) Urine Glucose Normal mg/dL (Normal) Assessment/Plan Assessment/Plan ? Heart failure Respiratory distress Hypertension Continue IV lasix Echocardiogram pending Plan discussed with: Patient My Orders Orders - DESIREE MENA MD Procedure Category Date Status Time Pt Request For Service PT 09/27/25 Logged 15:24 Nutritional PHA 09/27/25 In Process Supplements (Ensure 17:00 Date of Service: Sep 27, 2025 Billing Provider: DESIREE MENA MD Common Visit Codes: [id number] INP/OBS CARE(HIGH) DESIREE MENA MD Sep 27, 2025 16:58
[2025-09-27] MEDS: Ensure HIGH Protein Vanilla 8oz Bottle PO SCH (17:00)
--- NOTE | 2025-09-27 21:05 | DVHSR ---
APPROVED REPORT EXAM: Two-dimensional and M-mode echocardiogram with Doppler and color Doppler. Blood Pressure: 139/75 mmHg INDICATION ef RISK FACTORS Height: 5'6, Weight: 109 DIMENSIONS LVDd 5.0 (3.8-5.7cm) LA (2D) (1.9-4.0cm) Aortic Root 3.8 (2.0-3.7cm) LVDs 3.3 (2.5-4.0cm) LA (MM) (1.9-4.0cm) Aortic Cusp Exc 1.9 (1.5-2.0cm) EF (%) 60.0 (55-70%) Rt. Atrium (1.9-4.0cm) Asc. Aorta 3.8 cm IVSd 0.7 (0.7-1.1cm) RV (D) (1.8-2.4cm) PWd 0.7 (0.7-1.1cm) Mitral Valve Mitral Mitral Stenosis E wave 0.69m/s MV Mean GR. mmHg A wave 0.67m/s MV Peak GR. 64mmHg E/A ratio 1.0 2D MVA cm2 DECEL Time 387ms PRESS 1/2 Time ms Aortic Valve Aortic Valve Aortic Stenosis V1 0.78m/s AO Mean GR. mmHg V2 1.02m/s AO Peak GR. 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
[2025-09-28 01:00] VITALS: BP 99/58; PULSE 59; RESP 18; TEMP 97.8; O2SAT 95
[2025-09-28 05:00] VITALS: BP 109/66; PULSE 72; RESP 19; TEMP 97.7; O2SAT 94
[2025-09-28 08:00] VITALS: PULSE 65; RESP 21; O2SAT 97
[2025-09-28 09:00] VITALS: BP 116/59; PULSE 65; RESP 21; TEMP 98.2; O2SAT 97
[2025-09-28] MEDS ORDERED: FURO1TAB33 PO (12:00)
[2025-09-28 12:44] VITALS: BP 116/59; PULSE 65; RESP 18; TEMP 36.8; O2SAT 97
== END 2025-09-28 13:30 | disposition home or self-care (01) | DRG 291 ==
LOC: ER 11:52 → OVERFLOW 19:01 → WEST WING 22:20
PROVIDERS: ADMIT Hospitalist; ATTEND Hospitalist
DX: I11.0 Hypertensive heart disease with heart failure (principal); I50.33 Acute on chronic diastolic (congestive) heart failure; D64.9 Anemia, unspecified; R06.03 Acute respiratory distress; Z86.73 Personal history of transient ischemic attack (TIA), and cerebral infarction without residual deficits; Z88.0 Allergy status to penicillin; Z88.5 Allergy status to narcotic agent; Z88.6 Allergy status to analgesic agent; Z90.710 Acquired absence of both cervix and uterus; Z91.048 Other nonmedicinal substance allergy status; Z88.2 Allergy status to sulfonamides; Z88.8 Allergy status to other drugs, medicaments and biological substances
CPT/HCPCS: 36415; 71046; 80048; 81001; 83880; 85025; 93306; 93970; 96374; 97163; 99291; G0378